=== PATIENT | male | born 1995 | race American Indian/Alaskan Native ===

== ENCOUNTER 2019-08-18 22:32 | Emergency (ER) | payer OTHER ==
[2019-08-18] MEDS ORDERED: ZIPRASIDONE MESYLATE 20 MG VIAL IM ONE ×3 (22:41→22:45)
--- NOTE | 2019-08-18 22:50 | Emergency Department Report ---
ED Psych HPI - General Stated Complaint: PTSD EPISODE Time Seen by Provider: 08/18/19 22:45 - History of Present Illness Initial Comments: Patient is 24 years old male with history of PTSD. Patient brought to the emergency room from a parking lot of a hotel nearby by EMS after patient found to the acting weird with a strange behavior. Patient is with his parents are traveling from [place]. They stated that he had episode like this before. Patient is agitated and is started punching himself. Patient also had a loud scream. Patient is laughing inappropriately. Patient given Geodon 20 mg IM upon arrival to the ER. MD Complaint: altered mental status -: This afternoon Associated Psychiatric Symptoms: racing thoughts History of same: Yes Quality: constant - Related Data Allergies Allergy/AdvReac Type Severity Reaction Status Date / Time No Known Allergies Allergy Unverified 08/18/19 22:44 ED Review of Systems ROS: Stated complaint: PTSD EPISODE Other details as noted in HPI Comment: Unobtainable due to pts medical conditions ED Physical Exam - General General appearance: alert, anxious, other (agitated) - Head Head exam: Present: atraumatic, normocephalic, normal inspection - ENT ENT exam: Present: normal exam, mucous membranes moist - Neck Neck exam: Present: normal inspection, full ROM. Absent: tenderness, m eningismus - Respiratory Respiratory exam: Present: normal lung sounds bilaterally - Cardiovascular Cardiovascular Exam: Present: regular rate, normal rhythm, normal heart sounds - GI/Abdominal GI/Abdominal exam: Present: soft, normal bowel sounds. Absent: distended, tenderness, guarding, rebound, rigid, organomegaly, mass, bruit, pulsatile mass, hernia - Extremities Exam Extremities exam: Present: normal inspection, full ROM, normal capillary refill - Neurological Exam Neurological exam: Present: alert, altered, CN II-XII intact. Absent: motor sensory deficit - Psychiatric Psychiatric exam: Present: agitated, anxious, manic - Skin Skin exam: Present: warm, intact, normal color ED Course Vital Signs 08/18/19 08/19/19 08/19/19 22:52 07:55 22:00 Temperature 98.1 F 97.6 F 97.8 F Pulse Rate 84 75 79 Respiratory 18 16 Rate Blood Pressure 155/94 Blood Pressure 130/89 130/96 [Left] O2 Sat by Pulse 99 98 Oximetry 08/20/19 08/20/19 02:00 22:12 Temperature 98.2 F 98.2 F Pulse Rate 76 104 H Respiratory 18 20 Rate Blood Pressure Blood Pressure 134/82 121/88 [Left] O2 Sat by Pulse 100 98 Oximetry ED Medical Decision Making - Lab Data Result diagrams: 08/18/19 23:54 08/18/19 23:54 Critical care attestation.: If time is entered above; I have spent that time in minutes in the direct care of this critically ill patient, excluding procedure time. ED Disposition Clinical Impression: Schizophrenia, disorganized type Disposition: [id number] PSY HOSP/PSY UNIT Is pt being admited?: No Condition: Stable Referrals: PRIMARY CARE, [Primary Care Provider] - 3-5 Days
[2019-08-19 00:39] LABS: Basophils % (Auto) 0.5 % (0.0-1.8); Eosinophils # (Auto) 0.2 K/mm3 (0.0-0.4); Eosinophils % (Auto) 3.3 % (0.0-4.3); Hematocrit 39.8 % (35.5-45.6); Lymphocytes # (Auto) 1.7 K/mm3 (1.2-5.4); Lymphocytes % (Auto) 22.9 % (13.4-35.0); Mean Corpuscular HGB Conc 35 % (32-34); Mean Corpuscular Volume 88 fl (84-94); Platelet Count 186 K/mm3 (140-440); Red Blood Count 4.55 M/mm3 (3.65-5.03); Red Cell Distribution Width 13.2 % (13.2-15.2)
[2019-08-19 01:01] LABS: BUN/Creatinine Ratio 22; Blood Urea Nitrogen 22 mg/dL (9-20); Calcium 9.9 mg/dL (8.4-10.2); Hemolysis Index 24
[2019-08-19 08:27] LABS: Bilirubin,Urine NEG (Negative); Blood,Urine SM (Negative); Color,Urine Yellow (Yellow); Mucus,Urine FEW /HPF; Protein,Urine <15 mg/dL mg/dL (Negative); RBC,Urine < 1.0 /HPF (0.0-6.0); Urobilinogen,Urine < 2.0 mg/dL (<2.0)
[2019-08-19 08:33] LABS: Amphetamine Screen,Urine PRESUMPTIVE NEGATIVE; Benzodiazepines Screen,Urine PRESUMPTIVE NEGATIVE; Cocaine Screen,Urine PRESUMPTIVE NEGATIVE; Methadone Screen,Urine PRESUMPTIVE NEGATIVE; Opiate Screen,Urine PRESUMPTIVE NEGATIVE
[2019-08-19 09:26] LABS: Cannabinoid Screen,Urine PRESUMPTIVE POSITIVE
[2019-08-19] MEDS ORDERED: LORazepam 2 MG/ML VIAL IM ONE (09:50)
[2019-08-19] MEDS: ZIPRASIDONE 20 MG CAP PO SCH ×2 (11:19→21:59)
[2019-08-19] MEDS: ZIPRASIDONE MESYLATE 20 MG VIAL IM PRN (11:21)
[2019-08-20] MEDS: ZIPRASIDONE MESYLATE 20 MG VIAL IM PRN ×3 (07:58→22:11)
[2019-08-20] MEDS ORDERED: LORazepam 2 MG/ML VIAL IM ONE (10:16)
--- NOTE | 2019-08-20 10:51 | Emergency Department Report ---
Blank Doc - Documentation Documentation: Patient seen. He is still actively psychotic. He is fully ambulatory. He has not injured himself. Additional Geodon has been given. He was placed in seclusion. A PRN order for Ativan has entered as well.
[2019-08-20] MEDS: ZIPRASIDONE 20 MG CAP PO SCH (10:58)
--- NOTE | 2019-08-20 11:33 | Consultation ---
History of Present Illness - Reason for Consult Consult date: 08/20/19 Reason for consult: MHE Requesting physician: ALBINO CHAU - Chief Complaint Chief complaint: Erratic Behavior - History of Present Psychiatric Illness Per ED Provider: Patient is 24 years old male with history of PTSD. Patient brought to the emergency room from a parking lot of a hotel nearby by EMS after patient found to the acting weird with a strange behavior. Patient is with his parents are traveling from [place]. They stated that he had episode like this before. Patient is agitated and is started punching himself. Patient also had a loud scream. Patient is laughing inappropriately. Patient given Geodon 20 mg IM upon arrival to the ER. Per MHA: Pt is a 24 yo AA male presenting to ED for MHE, as collateral reported actute psychosis. Pt unable to participate in assessment. Pt is pacing in room. Pt will respond to commands but will not speak. Pt presents with cooperative behaviors, anxious mood and imcongruent affect. According to collateral, pt was acting bizzare, pounding on chest, pacing. Parents called EMS and pt was go sported to [facility]. According to parents, pt did not have hx of mh problems prior to . Pt was honorably discharged in January 2019 due to depression. Pt spent three days inpatient in [place] in January 2019. According to mother, pt does not have history of SI/HI. Pt appears to responding to internal stiumli in ED. Pt has hx of Depression. According to collateral, triggers include recent of child, discharge from , and relationship discord. HPI Patient medicated due to acute psychosis, was unable to interview. patient remains in seclusion Event note: Got report patient dad had committed suicide in the hospital parking lot this AM. 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 Patient had been dealing with depression after return to [facility] in 2019. PAST PSYCHIATRIC HISTORY Diagnoses: Depression Suicide attempts or Self-harm behavior: n/a Prior psychiatric hospitalizations: yes Substance Abuse history: Yes Previous psychiatric medications tried: yes Outpatient treatment: Yes PAST MEDICAL HISTORY: Family Psychiatric History: None reported or documented SOCIAL HISTORY Marital Status: Single Living Arrangements: with parents Employment Status: n/a Access to guns/weapons: Yes, at parent house Education: n/a History of Abuse: n/a Legal History: n/a REVIEW OF SYSTEMS ROS cannot be reliably obtained from the patient due to being medicated for acute psychosis Assessment and Plan - Psychiatric problem (1) Schizophrenia, disorganized type Current Visit: Yes Status: Acute (2) Severe manic bipolar 1 disorder with psychotic behavior Current Visit: Yes Status: Acute (3) MDD (major depressive disorder) Current Visit: Yes Status: Acute RECOMMENDATIONS MEDICATIONS: Start on lithium and Seroquel. To check lithium levels Risks, benefits and alternatives of medications discussed with the patient, questions answered and consent obtained from patient. PSYCHOTHERAPY: Supportive psychotherapy provided MEDICAL: Per primary team DELIRIUM PRECAUTIONS: Please re-orient patient frequently, keep lights on during the day, and minimize benzodiazepines and opiates as these medications could worsen patient's confusion. 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 Please contact with any questions and/or concerns. Medications and Allergies Allergies Allergy/AdvReac Type Severity Reaction Status Date / Time No Known Allergies Allergy Unverified 08/18/19 22:44 Active Meds: Active Medications Ziprasidone (Geodon) 40 mg PO BID ANDRAE Last Admin: 08/20/19 10:58 Dose: Not Given Documented by: Ziprasidone (Geodon) 10 mg IM Q2H PRN PRN Reason: Agitation Last Admin: 08/20/19 07:58 Dose: 10 mg Documented by: Mental Status Exam - Vital signs Last Vital Signs Temp 98.2 F 08/20/19 02:00 Pulse 76 08/20/19 02:00 Resp 18 08/20/19 02:00 BP 134/82 08/20/19 02:00 Pulse Ox 100 08/20/19 02:00 Results Result Diagrams: 08/18/19 23:54 08/18/19 23:54 All other labs normal. Assessment and Plan - Psychiatric problem (1) Schizophrenia, disorganized type Current Visit: Yes Status: Acute (2) Severe manic bipolar 1 disorder with psychotic behavior Current Visit: Yes Status: Acute (3) MDD (major depressive disorder) Current Visit: Yes Status: Acute
[2019-08-20] MEDS: LITHIUM CARBONATE 300 MG CAP PO SCH ×2 (14:06→20:39)
[2019-08-20] MEDS: QUEtiapine 25 MG TAB PO SCH ×2 (14:06→22:11)
--- NOTE | 2019-08-20 16:13 | Event Note ---
Date: 08/20/19 The psychiatric team has coordinated with the [facility] to transfer the patient for psychiatric services The patient is awake, moving 4 extremities, protecting his airway, and hemodynamically stable. His screening laboratory studies were unremarkable. Case presented to the ER physician at the [facility], Dr. Wilkinson, who has graciously accepted the patient as an ER to ER transfer. At the moment, the patient is medically suitable for transfer for definitive care. Vital Signs 08/18/19 08/19/19 08/19/19 22:52 07:55 22:00 Temperature 98.1 F 97.6 F 97.8 F Pulse Rate 84 75 79 Respiratory 18 16 Rate Blood Pressure 155/94 Blood Pressure 130/89 130/96 [Left] O2 Sat by Pulse 99 98 Oximetry 08/20/19 02:00 Temperature 98.2 F Pulse Rate 76 Respiratory 18 Rate Blood Pressure Blood Pressure 134/82 [Left] O2 Sat by Pulse 100 Oximetry Lab Results 08/18/19 08/18/19 08/18/19 Range/Units 23:54 23:54 23:54 WBC 7.5 (4.5-11.0) K/mm3 RBC 4.55 (3.65-5.03) M/mm3 Hgb 14.0 (11.8-15.2) gm/dl Hct 39.8 (35.5-45.6) % MCV 88 (84-94) fl MCH 31 (28-32) pg MCHC 35 H (32-34) % RDW 13.2 (13.2-15.2) % Plt Count 186 (140-440) K/mm3 Lymph % (Auto) 22.9 (13.4-35.0) % Pacific % (Auto) 13.0 H (0.0-7.3) % Eos % (Auto) 3.3 (0.0-4.3) % Baso % (Auto) 0.5 (0.0-1.8) % Lymph # 1.7 (1.2-5.4) K/mm3 Pacific # 1.0 H (0.0-0.8) K/mm3 Eos # 0.2 (0.0-0.4) K/mm3 Baso # 0.0 (0.0-0.1) K/mm3 Seg Neutrophils % 60.3 (40.0-70.0) % Seg Neutrophils # 4.6 (1.8-7.7) K/mm3 Sodium 139 (137-145) mmol/L Potassium 3.9 (3.6-5.0) mmol/L Chloride 99.5 (98-107) mmol/L Carbon Dioxide 23 (22-30) mmol/L Anion Gap 20 mmol/L BUN 22 H (9-20) mg/dL Creatinine 1.0 (0.8-1.5) mg/dL Estimated GFR > 60 ml/min BUN/Creatinine Ratio 22 % Glucose 91 (75-100) mg/dL Calcium 9.9 (8.4-10.2) mg/dL Urine Color (Yellow) Urine Turbidity (Clear) Urine pH (5.0-7.0) Ur Specific [place] (1.003-1.030) Urine Protein (Negative) mg/dL Urine Glucose (UA) (Negative) mg/dL Urine Ketones (Negative) mg/dL Urine Blood (Negative) Urine Nitrite (Negative) Urine Bilirubin (Negative) Urine Urobilinogen (<2.0) mg/dL Ur Leukocyte Esterase (Negative) Urine WBC (Auto) (0.0-6.0) /HPF Urine RBC (Auto) (0.0-6.0) /HPF Urine Mucus /HPF Salicylates < 0.3 L (2.8-20.0) mg/dL Urine Opiates Screen Urine Methadone Screen Acetaminophen (10.0-30.0) ug/mL Ur Barbiturates Screen Ur Phencyclidine Scrn Ur Amphetamines Screen U Benzodiazepines Scrn Urine Cocaine Screen U Marijuana (THC) Screen Drugs of Abuse Note Plasma/Serum Alcohol (0-0.07) % 08/18/19 08/18/19 08/18/19 Range/Units 23:54 23:54 Unknown WBC (4.5-11.0) K/mm3 RBC (3.65-5.03) M/mm3 Hgb (11.8-15.2) gm/dl Hct (35.5-45.6) % MCV (84-94) fl MCH (28-32) pg MCHC (32-34) % RDW (13.2-15.2) % Plt Count (140-440) K/mm3 Lymph % (Auto) (13.4-35.0) % Pacific % (Auto) (0.0-7.3) % Eos % (Auto) (0.0-4.3) % Baso % (Auto) (0.0-1.8) % Lymph # (1.2-5.4) K/mm3 [place] # (0.0-0.8) K/mm3 Eos # (0.0-0.4) K/mm3 Baso # (0.0-0.1) K/mm3 Seg Neutrophils % (40.0-70.0) % Seg Neutrophils # (1.8-7.7) K/mm3 Sodium (137-145) mmol/L Potassium (3.6-5.0) mmol/L Chloride (98-107) mmol/L Carbon Dioxide (22-30) mmol/L Anion Gap mmol/L BUN (9-20) mg/dL Creatinine (0.8-1.5) mg/dL Estimated GFR ml/min BUN/Creatinine Ratio % Glucose (75-100) mg/dL Calcium (8.4-10.2) mg/dL Urine Color Yellow (Yellow) Urine Turbidity Clear (Clear) Urine pH 5.0 (5.0-7.0) Ur Specific [place] 1.017 (1.003-1.030) Urine Protein <15 mg/dl (Negative) mg/dL Urine Glucose (UA) Neg (Negative) mg/dL Urine Ketones Neg (Negative) mg/dL Urine Blood Sm (Negative) Urine Nitrite Neg (Negative) Urine Bilirubin Neg (Negative) Urine Urobilinogen < 2.0 (<2.0) mg/dL Ur Leukocyte Esterase Neg (Negative) Urine WBC (Auto) 1.0 (0.0-6.0) /HPF Urine RBC (Auto) < 1.0 (0.0-6.0) /HPF Urine Mucus Few /HPF Salicylates (2.8-20.0) mg/dL Urine Opiates Screen Urine Methadone Screen Acetaminophen < 5.0 L (10.0-30.0) ug/mL Ur Barbiturates Screen Ur Phencyclidine Scrn Ur Amphetamines Screen U Benzodiazepines Scrn Urine Cocaine Screen U Marijuana (THC) Screen Drugs of Abuse Note Plasma/Serum Alcohol < 0.01 (0-0.07) % 08/18/19 Range/Units Unknown WBC (4.5-11.0) K/mm3 RBC (3.65-5.03) M/mm3 Hgb (11.8-15.2) gm/dl Hct (35.5-45.6) % MCV (84-94) fl MCH (28-32) pg MCHC (32-34) % RDW (13.2-15.2) % Plt Count (140-440) K/mm3 Lymph % (Auto) (13.4-35.0) % Pacific % (Auto) (0.0-7.3) % Eos % (Auto) (0.0-4.3) % Baso % (Auto) (0.0-1.8) % Lymph # (1.2-5.4) K/mm3 [place] # (0.0-0.8) K/mm3 Eos # (0.0-0.4) K/mm3 Baso # (0.0-0.1) K/mm3 Seg Neutrophils % (40.0-70.0) % Seg Neutrophils # (1.8-7.7) K/mm3 Sodium (137-145) mmol/L Potassium (3.6-5.0) mmol/L Chloride (98-107) mmol/L Carbon Dioxide (22-30) mmol/L Anion Gap mmol/L BUN (9-20) mg/dL Creatinine (0.8-1.5) mg/dL Estimated GFR ml/min BUN/Creatinine Ratio % Glucose (75-100) mg/dL Calcium (8.4-10.2) mg/dL Urine Color (Yellow) Urine Turbidity (Clear) Urine pH (5.0-7.0) Ur Specific [place] (1.003-1.030) Urine Protein (Negative) mg/dL Urine Glucose (UA) (Negative) mg/dL Urine Ketones (Negative) mg/dL Urine Blood (Negative) Urine Nitrite (Negative) Urine Bilirubin (Negative) Urine Urobilinogen (<2.0) mg/dL Ur Leukocyte Esterase (Negative) Urine WBC (Auto) (0.0-6.0) /HPF Urine RBC (Auto) (0.0-6.0) /HPF Urine Mucus /HPF Salicylates (2.8-20.0) mg/dL Urine Opiates Screen Presumptive negative Urine Methadone Screen Presumptive negative Acetaminophen (10.0-30.0) ug/mL Ur Barbiturates Screen Presumptive negative Ur Phencyclidine Scrn Presumptive negative Ur Amphetamines Screen Presumptive negative U Benzodiazepines Scrn Presumptive negative Urine Cocaine Screen Presumptive negative U Marijuana (THC) Screen Presumptive positive Drugs of Abuse Note Disclamer Plasma/Serum Alcohol (0-0.07) %
[2019-08-20] MEDS ORDERED: LORazepam 2 MG/ML VIAL ONE (19:27)
[2019-08-20 22:14] VITALS: BP 121/88
== END 2019-08-20 23:01 ==
LOC: EEVIPCON 22:32 → ED 22:32
DX: R41.82 Altered mental status, unspecified (principal)
CPT/HCPCS: 36415; 80048; 80307; 81001; 85025; 96372; 99285; J2060; J3486; 80320; G0480